=== PATIENT | male | born 1960 | race Native Hawaiian/Other Pacific Islander ===

== ENCOUNTER 2016-08-25 07:39 | Day surgery (SDC) | payer OTHER ==
[~2016-08-25] VITALS: Ht 30.5 cm; Wt 0.5 kg
== END 2016-08-25 10:30 | disposition home or self-care (01) ==
LOC: OR 07:39
PROC: 0DJD8ZZ Inspection of Lower Intestinal Tract, Via Natural or Artificial Opening Endoscopic (ICD-10-PCS; principal; 2016-08-25)
DX: K64.8 Other hemorrhoids (principal); K57.30 Diverticulosis of large intestine without perforation or abscess without bleeding; Z12.11 Encounter for screening for malignant neoplasm of colon
CPT/HCPCS: J2704; J7120

== ENCOUNTER 2019-07-26 08:16 | Emergency (ER) | payer OTHER ==
[~2019-07-26] VITALS: Ht 175.3 cm; Wt 163.3 kg
[~2019-07-26 08:16] MED LIST: FIORICET PO; IMITREX SC; LISI20TA11 PO; LORA2INJ21 IV; REQUIP0.25 MG PO
[2019-07-26 09:08] LABS: PLATELET COUNT 232 K/uL (142-355)
[2019-07-26 09:15] LABS: POTASSIUM 4.3 mmol/L (3.6-5.2)
[2019-07-26 10:58] VITALS: BP 131/50; TEMP 97.6
== END 2019-07-26 11:21 | disposition home or self-care (01) ==
LOC: ED 08:16
PROVIDERS: Emergency Medicine
DX: R51 Headache (principal); R11.2 Nausea with vomiting, unspecified
CPT/HCPCS: 36415; 80053; 83036; 85027; 96360; 96361; 96365; 96374; 96375; 99284; J1885; J2405; J7120

== ENCOUNTER 2020-06-08 13:10 | Outpatient (CLI) | payer OTHER | END 2020-06-08 21:57 | disposition home or self-care (01) | LOC: INF 13:10 | PROVIDERS: ATTEND Internal Medicine Endocrinology, Diabetes & Metabolism | DX: Z23 Encounter for immunization (principal) | CPT/HCPCS: 96372 ==

== ENCOUNTER 2020-07-06 13:10 | Outpatient (CLI) | payer OTHER | END 2020-07-06 22:50 | disposition home or self-care (01) | LOC: INF 13:10 | PROVIDERS: ATTEND Internal Medicine Endocrinology, Diabetes & Metabolism | DX: Z23 Encounter for immunization (principal) | CPT/HCPCS: 96372 ==

== ENCOUNTER 2020-12-28 08:39 | Outpatient (CLI) | payer OTHER ==
[2020-12-28 09:02] LABS: POTASSIUM 4.5 mmol/L (3.6-5.2)
[2020-12-28 09:18] LABS: PLATELET COUNT 228 K/uL (142-355)
== END 2020-12-28 19:18 | disposition home or self-care (01) ==
LOC: LABW 08:39
PROVIDERS: ATTEND Nurse Practitioner
DX: E11.9 Type 2 diabetes mellitus without complications (principal); E78.5 Hyperlipidemia, unspecified
CPT/HCPCS: 36415; 80053; 80061; 83036; 84443; 85027

== ENCOUNTER 2021-02-18 13:23 | Outpatient (CLI) | payer OTHER | END 2021-02-18 21:43 | disposition home or self-care (01) | LOC: RAD 13:23 | PROVIDERS: ATTEND Nurse Practitioner Family | DX: M54.5 Low back pain (principal); R30.0 Dysuria ==